=== PATIENT | male | born 2000 | race Caucasian/White ===

== ENCOUNTER 2021-11-23 12:59 | Emergency (ER) | payer OTHER ==
[2021-11-23] MEDS ORDERED: FAMOTIDINE 20 MG TAB PO STA (13:17)
--- NOTE | 2021-11-23 13:21 | ED ---
General Adult HPI - General Chief complaint: Nausea/Vomiting/Diarrhea Stated complaint: Vomiting blood Time Seen by Provider: 11/23/21 13:06 Source: patient, RN notes reviewed, old records reviewed Mode of arrival: ambulatory Limitations: no limitations - History of Present Illness Initial comments: This is a well-appearing 20-year-old male that presents to the emergency room with his brother with complaints of epigastric pain and one episode of vomiting blood yesterday. Patient states he is having excessive nasal congestion and mucus over the past few months. He has not had any further emesis. Denies any other abnormal bleeding. Patient states he is also having suicidal thoughts. Does not have a plan. Hes been struggling with depression for several years. Did have suicidal thoughts 2 years ago after a breakup but no attempts. No psychiatric hospitalizations. Patient states that he does smoke marijuana and uses kratom. Denies any alcohol or other drug use. -: days(s) (1) Location: abdomen (epigastric) Radiation: non-radiation Severity scale (1-10): 2 Quality: aching Consistency: intermittent Associated Symptoms: nausea/vomiting, other (congestion) Treatments Prior to Arrival: none - Related Data Allergies Allergy/AdvReac Type Severity Reaction Status Date / Time No Known Allergies Allergy Verified 11/23/21 13:04 Review of Systems ROS Statement: Those systems with pertinent positive or pertinent negative responses have been documented in the HPI. ROS Other: All systems not noted in ROS Statement are negative. Past Medical History Past Medical History: No Reported History History of Any Multi-Drug Resistant Organisms: None Reported Past Surgical History: No Surgical Hx Reported Past Psychological History: ADD/ADHD, Anxiety, Depression Smoking Status: Vaper Past Alcohol Use History: Occasional Past Drug Use History: Marijuana General Exam Limitations: no limitations General appearance: alert, in no apparent distress Head exam: Present: atraumatic, normocephalic, normal inspection Eye exam: Present: normal appearance. Absent: scleral icterus, conjunctival injection ENT exam: Present: mucous membranes moist Expanded Mouth exam: Present: normal external inspection, tongue normal, tongue elevation. Absent: drooling, trismus, muffled voice Throat exam: negative: tonsillar erythema, tonsillomegaly, tonsillar exudate, R peritonsillar mass, L peritonsillar mass Neck exam: Present: normal inspection, full ROM. Absent: tenderness, meningismus, lymphadenopathy Respiratory exam: Present: normal lung sounds bilaterally. Absent: respiratory distress, wheezes, rales, rhonchi, stridor, chest wall tenderness, accessory muscle use Cardiovascular Exam: Present: regular rate GI/Abdominal exam: Present: soft. Absent: distended, tenderness, guarding, rebound, rigid Extremities exam: Present: full ROM, normal capillary refill. Absent: tenderness, pedal edema, calf tenderness Back exam: Present: full ROM. Absent: tenderness, CVA tenderness (R), CVA tenderness (L) Neurological exam: Present: alert, oriented X3, normal gait Psychiatric exam: Present: depressed, suicidal ideation Skin exam: Present: warm, dry, normal color. Absent: cyanosis, diaphoretic, petechiae, pallor Course Vital Signs 11/23/21 11/23/21 13:00 16:30 Temperature 98 F 98.1 F Pulse Rate 100 92 Respiratory 18 20 Rate Blood Pressure 132/82 128/78 O2 Sat by Pulse 99 96 Oximetry Medical Decision Making - Medical Decision Making Patient presents with one episode of bloody emesis and suicidal ideation. He reports no other abnormal bleeding. No abdominal pain. On physical exam patient's abdomen is soft and nontender. He is afebrile. Vital signs are stable. Hemoglobin and hematocrit are stable. Platelet count is within normal limits. He states he does have a history of depression and stopped taking Wellbutrin approximately 3-4 months ago. He denies any suicidal plan. No previous suicide attempts. EPS nurse Angelica did speak with patient and has provided him with resources. She feels he is stable to be discharged. His brother is at bedside. He will be discharged home to follow up with his primary care doctor and [facility]. Case discussed with Dr. Amaya who is also agreeable to this plan of care. - Lab Data Result diagrams: 11/23/21 13:33 11/23/21 13:33 Lab Results 11/23/21 11/23/21 11/23/21 Range/Units 13:33 13:33 13:33 WBC 4.8 (4.0-11.0) k/uL RBC 5.06 (4.30-5.90) m/uL Hgb 15.5 (13.0-17.5) gm/dL Hct 45.9 (39.0-53.0) % MCV 90.8 (80.0-100.0) fL MCH 30.6 (25.0-35.0) pg MCHC 33.7 (31.0-37.0) g/dL RDW 12.4 (11.5-15.5) % Plt Count 238 (150-450) k/uL MPV 8.3 Neutrophils % 64 % Lymphocytes % 26 % Monocytes % 7 % Eosinophils % 0 % Basophils % 0 % Neutrophils # 3.1 (1.3-7.7) k/uL Lymphocytes # 1.3 (1.0-4.8) k/uL Monocytes # 0.3 (0-1.0) k/uL Eosinophils # 0.0 (0-0.7) k/uL Basophils # 0.0 (0-0.2) k/uL PT 11.6 (9.0-12.0) sec INR 1.1 (<1.2) APTT 27.9 (22.0-30.0) sec Sodium 141 (137-145) mmol/L Potassium 4.1 (3.5-5.1) mmol/L Chloride 105 (98-107) mmol/L Carbon Dioxide 21 L (22-30) mmol/L Anion Gap 15 mmol/L BUN 9 (9-20) mg/dL Creatinine 0.86 (0.66-1.25) mg/dL Est GFR (CKD-EPI)AfAm >90 (>60 ml/min/1.73 sqM) Est GFR (CKD-EPI)NonAf >90 (>60 ml/min/1.73 sqM) Glucose 92 (74-99) mg/dL Calcium 9.9 (8.4-10.2) mg/dL Magnesium 2.3 (1.6-2.3) mg/dL Total Bilirubin 0.8 (0.2-1.3) mg/dL AST 26 (17-59) U/L ALT 22 (4-49) U/L Alkaline Phosphatase 125 (38-126) U/L Total Protein 9.1 H (6.3-8.2) g/dL Albumin 5.5 H (3.5-5.0) g/dL Urine Color Urine Appearance (Clear) Urine pH (5.0-8.0) Ur Specific [place] (1.001-1.035) Urine Protein (Negative) Urine Glucose (UA) (Negative) Urine Ketones (Negative) Urine Blood (Negative) Urine Nitrite (Negative) Urine Bilirubin (Negative) Urine Urobilinogen (<2.0) mg/dL Ur Leukocyte Esterase (Negative) Urine RBC (0-5) /hpf Urine WBC (0-5) /hpf Amorphous Sediment (None) /hpf Urine Bacteria (None) /hpf Urine Mucus (None) /hpf Urine Opiates Screen (NotDetected) Ur Oxycodone Screen (NotDetected) Urine Methadone Screen (NotDetected) Ur Propoxyphene Screen (NotDetected) Ur Barbiturates Screen (NotDetected) U Tricyclic Antidepress (NotDetected) Ur Phencyclidine Scrn (NotDetected) Ur Amphetamines Screen (NotDetected) U Methamphetamines Scrn (NotDetected) U Benzodiazepines Scrn (NotDetected) Urine Cocaine Screen (NotDetected) U Marijuana (THC) Screen (NotDetected) 11/23/21 Range/Units 14:20 WBC (4.0-11.0) k/uL RBC (4.30-5.90) m/uL Hgb (13.0-17.5) gm/dL Hct (39.0-53.0) % MCV (80.0-100.0) fL MCH (25.0-35.0) pg MCHC (31.0-37.0) g/dL RDW (11.5-15.5) % Plt Count (150-450) k/uL MPV Neutrophils % % Lymphocytes % % Monocytes % % Eosinophils % % Basophils % % Neutrophils # (1.3-7.7) k/uL Lymphocytes # (1.0-4.8) k/uL Monocytes # (0-1.0) k/uL Eosinophils # (0-0.7) k/uL Basophils # (0-0.2) k/uL PT (9.0-12.0) sec INR (<1.2) APTT (22.0-30.0) sec Sodium (137-145) mmol/L Potassium (3.5-5.1) mmol/L Chloride (98-107) mmol/L Carbon Dioxide (22-30) mmol/L Anion Gap mmol/L BUN (9-20) mg/dL Creatinine (0.66-1.25) mg/dL Est GFR (CKD-EPI)AfAm (>60 ml/min/1.73 sqM) Est GFR (CKD-EPI)NonAf (>60 ml/min/1.73 sqM) Glucose (74-99) mg/dL Calcium (8.4-10.2) mg/dL Magnesium (1.6-2.3) mg/dL Total Bilirubin (0.2-1.3) mg/dL AST (17-59) U/L ALT (4-49) U/L Alkaline Phosphatase (38-126) U/L Total Protein (6.3-8.2) g/dL Albumin (3.5-5.0) g/dL Urine Color Yellow Urine Appearance Turbid (Clear) Urine pH 8.0 (5.0-8.0) Ur Specific [place] 1.024 (1.001-1.035) Urine Protein 1+ H (Negative) Urine Glucose (UA) Negative (Negative) Urine Ketones 2+ H (Negative) Urine Blood Negative (Negative) Urine Nitrite Negative (Negative) Urine Bilirubin Negative (Negative) Urine Urobilinogen <2.0 (<2.0) mg/dL Ur Leukocyte Esterase Negative (Negative) Urine RBC 1 (0-5) /hpf Urine WBC <1 (0-5) /hpf Amorphous Sediment Rare H (None) /hpf Urine Bacteria Rare H (None) /hpf Urine Mucus Many H (None) /hpf Urine Opiates Screen Not Detected (NotDetected) Ur Oxycodone Screen Not Detected (NotDetected) Urine Methadone Screen Not Detected (NotDetected) Ur Propoxyphene Screen Not Detected (NotDetected) Ur Barbiturates Screen Not Detected (NotDetected) U Tricyclic Antidepress Not Detected (NotDetected) Ur Phencyclidine Scrn Not Detected (NotDetected) Ur Amphetamines Screen Not Detected (NotDetected) U Methamphetamines Scrn Not Detected (NotDetected) U Benzodiazepines Scrn Not Detected (NotDetected) Urine Cocaine Screen Not Detected (NotDetected) U Marijuana (THC) Screen Detected H (NotDetected) Disposition Clinical Impression: Depression, GIB (gastrointestinal bleeding) Disposition: HOME SELF-CARE Condition: Good Instructions (If sedation given, give patient instructions): Depression (ED), Acute Nausea and Vomiting (ED), Suicide Prevention (ED) Additional Instructions: Your hemoglobin, hematocrit and platelet counts are within normal limits today. Follow-up with your primary care doctor regarding possible gastroenterology referral for your episode of vomiting blood. Discuss with the primary care doctor possibly restarting Wellbutrin for depression. Follow-up with [facility] for depression. Return to the Emergency room with any new or concerning symptoms. Is patient prescribed a controlled substance at d/c from ED?: No Referrals: Jacques Long MD [Primary Care Provider] - 1-2 days Time of Disposition: 16:44
[2021-11-23 13:52] LABS: Basophils % (A) 0 %; Eosinophils % (A) 0 %; HCT 45.9 % (39.0-53.0); HGB 15.5 gm/dL (13.0-17.5); Lymphocytes # (A) 1.3 k/uL (1.0-4.8); Lymphocytes % (A) 26 %; MCH 30.6 pg (25.0-35.0); MCHC 33.7 g/dL (31.0-37.0); MCV 90.8 fL (80.0-100.0); Mean Platelet Volume 8.3; Monocytes # (A) 0.3 k/uL (0-1.0); Monocytes % (A) 7 %; Neutrophils # (A) 3.1 k/uL (1.3-7.7); Neutrophils % (A) 64 %; Platelet Count 238 k/uL (150-450); RBC 5.06 m/uL (4.30-5.90); RDW 12.4 % (11.5-15.5); WBC 4.8 k/uL (4.0-11.0)
[2021-11-23 14:00] LABS: ALT 22 U/L (4-49); AST 26 U/L (17-59); African American GFR (CKD) >90 (>60 ml/min/1.73 sqM); Albumin 5.5 g/dL (3.5-5.0); Alkaline Phosphatase 125 U/L (38-126); Anion Gap 15 mmol/L; Blood Urea Nitrogen 9 mg/dL (9-20); Calcium 9.9 mg/dL (8.4-10.2); Carbon Dioxide 21 mmol/L (22-30); Chloride 105 mmol/L (98-107); Glucose 92 mg/dL (74-99); Magnesium 2.3 mg/dL (1.6-2.3); Non-African American GFR(CKD) >90 (>60 ml/min/1.73 sqM); Potassium 4.1 mmol/L (3.5-5.1); Sodium 141 mmol/L (137-145); Total Bilirubin 0.8 mg/dL (0.2-1.3); Total Protein 9.1 g/dL (6.3-8.2)
[2021-11-23 14:01] LABS: INR 1.1 (<1.2); Partial Thromboplastin Time 27.9 sec (22.0-30.0); Prothrombin Time 11.6 sec (9.0-12.0)
[2021-11-23 15:44] LABS: Amphetamine Screen,Urine Not Detected (NotDetected); Barbiturate Screen,Urine Not Detected (NotDetected); Benzodiazepines Screen,Urine Not Detected (NotDetected); Cocaine Screen,Urine Not Detected (NotDetected); Methadone Screen, Urine Not Detected (NotDetected); Opiate Screen,Urine Not Detected (NotDetected); Oxycodone Screen, Urine Not Detected (NotDetected); Phencyclidine Screen,Urine Not Detected (NotDetected); Tricyclic Antidepressant,Urine Not Detected (NotDetected); Urn Cannabinoid Scrn Detected (NotDetected)
[2021-11-23 15:47] LABS: Amorphous Sediment,Urine Rare /hpf; Appearance,Urine Turbid (Clear); Bacteria,Urine Rare /hpf; Bilirubin,Urine Negative (Negative); Blood,Urine Negative (Negative); Color,Urine Yellow; Glucose,Urine (UA) Negative (Negative); Leukocyte Esterase,Urine Negative (Negative); Mucus,Urine Many /hpf; Nitrite,Urine Negative (Negative); Protein,Urine 1+ (Negative); RBC,Urine 1 /hpf (0-5); Specific Gravity,Urine 1.024 (1.001-1.035); Urobilinogen,Urine <2.0 mg/dL (<2.0); WBC,Urine <1 /hpf (0-5)
[2021-11-23 16:31] LABS: Ketones,Urine 2+ (Negative)
[2021-11-23 16:35] VITALS: RESP 20
[2021-11-23 17:01] VITALS: BP 122/78; PULSE 89; TEMP 98
== END 2021-11-23 16:58 | disposition home or self-care (01) ==
LOC: EC 12:59
DX: F32.A Depression, unspecified (principal); K92.2 Gastrointestinal hemorrhage, unspecified; F90.9 Attention-deficit hyperactivity disorder, unspecified type; F41.9 Anxiety disorder, unspecified; F12.90 Cannabis use, unspecified, uncomplicated; Z79.899 Other long term (current) drug therapy
CPT/HCPCS: 36415; 80053; 80306; 81001; 82075; 83735; 85025; 85610; 85730; 99284

== ENCOUNTER 2023-05-04 15:15 | Inpatient (IN) | payer MEDICAID, OTHER ==
--- NOTE | 2023-05-04 18:44 | ED ---
Psych HPI - General Chief Complaint: Psychiatric Symptoms Stated Complaint: Mental Health Time Seen by Provider: 05/04/23 15:20 Source: patient, EMS Mode of arrival: EMS - History of Present Illness Initial Comments: 22-year-old male presents emergency department reporting suicidal ideations. Has a history of depression. States that he has had some suicidal thoughts over the past couple of days. He recently had moved back in with his mother and they do not get along. Patient denies any attempt at harming himself. Denies drug or alcohol use. Patient does see a counselor and takes medication however he states he does not feel like they are helping. No other alleviating, precipitating or modifying factors - Related Data Home Medications Medication Instructions Recorded Confirmed DULoxetine HCL [Cymbalta] 30 mg PO BID 05/04/23 05/04/23 Previous Rx's Medication Instructions Recorded Mirtazapine [Remeron] 15 mg PO HS 14 Days #14 tab 09/09/22 Allergies Allergy/AdvReac Type Severity Reaction Status Date / Time No Known Allergies Allergy Verified 05/04/23 16:18 Review of Systems ROS Statement: Those systems with pertinent positive or pertinent negative responses have been documented in the HPI. ROS Other: All systems not noted in ROS Statement are negative. Past Medical History Past Medical History: Asthma History of Any Multi-Drug Resistant Organisms: None Reported Past Surgical History: No Surgical Hx Reported Past Psychological History: ADD/ADHD, Anxiety, Depression Smoking Status: Vaper Past Alcohol Use History: Occasional Past Drug Use History: None Reported General Exam Limitations: no limitations General appearance: alert, in no apparent distress Head exam: Present: atraumatic, normocephalic, normal inspection Eye exam: Present: normal appearance, PERRL, EOMI. Absent: scleral icterus, conjunctival injection, periorbital swelling ENT exam: Present: normal exam, mucous membranes moist Neck exam: Present: normal inspection. Absent: tenderness, meningismus, lymphadenopathy Respiratory exam: Present: normal lung sounds bilaterally. Absent: respiratory distress, wheezes, rales, rhonchi, stridor Cardiovascular Exam: Present: regular rate, normal rhythm, normal heart sounds. Absent: systolic murmur, diastolic murmur, rubs, gallop, clicks GI/Abdominal exam: Present: soft, normal bowel sounds. Absent: distended, tenderness, guarding, rebound, rigid Extremities exam: Present: normal inspection, full ROM, normal capillary refill. Absent: tenderness, pedal edema, joint swelling, calf tenderness Back exam: Present: normal inspection Neurological exam: Present: alert, oriented X3, CN II-XII intact Psychiatric exam: Present: depressed Skin exam: Present: warm, dry, intact, normal color. Absent: rash Course Vital Signs 05/04/23 05/05/23 05/05/23 15:18 07:11 14:53 Temperature 98.3 F Pulse Rate 100 69 68 Respiratory 18 16 18 Rate Blood Pressure 148/82 121/78 124/84 O2 Sat by Pulse 98 98 97 Oximetry Medical Decision Making - Medical Decision Making Was pt. sent in by a medical professional or institution (, PA, [employer], urgent care, hospital, or skilled nursing...) When possible be specific @ -No Did you speak to anyone other than the patient for history (EMS, parent, family, police, friend...)? What history was obtained from this source @ -No Did you review nursing and triage notes (agree or disagree)? Why? @ -I reviewed and agree with nursing and triage notes Were old charts reviewed (outside hosp., previous admission, EMS record, old EKG, old radiological studies, urgent care reports/EKG's, skilled nursing records)? Report findings @ -No old charts were reviewed Differential Diagnosis (chest pain, altered mental status, abdominal pain women, abdominal pain men, vaginal bleeding, weakness, fever, dyspnea, syncope, headache, dizziness, GI bleed, back pain, seizure, CVA, palpatations, mental health, musculoskeletal)? @ -Differential Mental Health Depression, anxiety, bipolar, psychosis, schizophrenia, borderline personality, situational depression, adjustment disorder, behavioral disorder, brain tumor, malingering, substance abuse, encephalopathy, medication reaction, dementia, hypothyroidism, degenerative neurologic disorder, lupus.... This is not meant to be all-inclusive list EKG interpreted by me (3pts min.). @ -Not done X-rays interpreted by me (1pt min.). @ -None done CT interpreted by me (1pt min.). @ -None done U/S interpreted by me (1pt. min.). @ -None done What testing was considered but not performed or refused? (CT, X-rays, U/S, labs)? Why? @ -None What meds were considered but not given or refused? Why? @ -None Did you discuss the management of the patient with other professionals (professionals i.e. , PA, [employer] RE[employer], lab, RT, psych nurse, social work professor, director mission, teacher, grants officer, telephonic nurse case manager)? Give summary @ -EPS social work professor Was smoking cessation discussed for >3mins.? @ -No Was critical care preformed (if so, how long)? @ -No Were there social determinants of health that impacted care today? How? (Homelessness, low income, unemployed, alcoholism, drug addiction, transportation, low edu. Level, literacy, decrease access to med. care, long term, rehab)? @ -No Was there de-escalation of care discussed even if they declined (Discuss DNR or withdrawal of care, Hospice)? DNR status @ -No What co-morbidities impacted this encounter? (DM, HTN, Smoking, COPD, CAD, Cancer, CVA, ARF, Chemo, Hep., AIDS, mental health diagnosis, sleep apnea, morbid obesity)? @ -Depression Was patient admitted / discharged? Hospital course, mention meds given and route, prescriptions, significant lab abnormalities, going to OR and other pertinent info. @ -Upon arrival patient placed into room 13. Thorough history and physical exam was performed. Patient does provide a urine sample. He is evaluated by EPS. They do feel that the patient needs to be hospitalized. He is currently awaiting placement Undiagnosed new problem with uncertain prognosis? @ -No Drug Therapy requiring intensive monitoring for toxicity (Heparin, Nitro, Insulin, Cardizem)? @ -No Were any procedures done? @ -No Diagnosis/symptom? @ -Acute depression, acute suicidal ideation Acute, or Chronic, or Acute on Chronic? @ -Acute Uncomplicated (without systemic symptoms) or Complicated (systemic symptoms)? @ -Default Side effects of treatment? @ -No Exacerbation, Progression, or Severe Exacerbation? @ -No Poses a threat to life or bodily function? How? (Chest pain, USA, IA, pneumonia, PE, COPD, DKA, ARF, appy, cholecystitis, CVA, Diverticulitis, Homicidal, Suicidal, threat to staff... and all critical care pts) @ -No - Lab Data Result diagrams: 05/06/23 08:05 05/06/23 08:05 Lab Results 05/04/23 05/04/23 Range/Units 18:40 22:12 Urine Color Colorless Urine Appearance Clear (Clear) Urine pH 6.5 (5.0-8.0) Ur Specific [place] 1.007 (1.001-1.035) Urine Protein Negative (Negative) Urine Glucose (UA) Negative (Negative) Urine Ketones Negative (Negative) Urine Blood Negative (Negative) Urine Nitrite Negative (Negative) Urine Bilirubin Negative (Negative) Urine Urobilinogen <2.0 (<2.0) mg/dL Ur Leukocyte Esterase Negative (Negative) Urine Opiates Screen Not Detected (NotDetected) Ur Oxycodone Screen Not Detected (NotDetected) Urine Methadone Screen Not Detected (NotDetected) Ur Barbiturates Screen Not Detected (NotDetected) U Tricyclic Antidepress Not Detected (NotDetected) Ur Phencyclidine Scrn Not Detected (NotDetected) Ur Amphetamines Screen Not Detected (NotDetected) U Methamphetamines Scrn Not Detected (NotDetected) U Benzodiazepines Scrn Not Detected (NotDetected) Urine Cocaine Screen Not Detected (NotDetected) U Marijuana (THC) Screen Detected H (NotDetected) Influenza Type A (PCR) Not Detected (Not Detectd) Influenza Type B (PCR) Not Detected (Not Detectd) RSV (PCR) Not Detected (Not Detectd) SARS-CoV-2 (PCR) Not Detected (Not Detectd) Disposition Clinical Impression: Depression, Suicidal ideation Disposition: TRANSFER TO PSYCH HOSP/UNIT Condition: Serious Is patient prescribed a controlled substance at d/c from ED?: No
[2023-05-04 18:51] LABS: Appearance,Urine Clear (Clear); Bilirubin,Urine Negative (Negative); Blood,Urine Negative (Negative); Color,Urine Colorless; Glucose,Urine (UA) Negative (Negative); Ketones,Urine Negative (Negative); Leukocyte Esterase,Urine Negative (Negative); Nitrite,Urine Negative (Negative); PH, Urine 6.5 (5.0-8.0); Protein,Urine Negative (Negative); Specific Gravity,Urine 1.007 (1.001-1.035); Urobilinogen,Urine <2.0 mg/dL (<2.0)
[2023-05-04 19:12] LABS: Amphetamine Screen,Urine Not Detected (NotDetected); Barbiturate Screen,Urine Not Detected (NotDetected); Benzodiazepines Screen,Urine Not Detected (NotDetected); Cocaine Screen,Urine Not Detected (NotDetected); Methadone Screen, Urine Not Detected (NotDetected); Opiate Screen,Urine Not Detected (NotDetected); Oxycodone Screen, Urine Not Detected (NotDetected); Phencyclidine Screen,Urine Not Detected (NotDetected); Tricyclic Antidepressant,Urine Not Detected (NotDetected); Urn Cannabinoid Scrn Detected (NotDetected)
[2023-05-04] MEDS: DULoxetine HCL 30 MG CAPSULE.DR PO SCH (22:17)
[2023-05-04] MEDS: MIRTAZAPINE 15 MG TAB PO SCH (22:17)
[2023-05-04] MEDS: ACETAMINOPHEN TAB 325 MG TAB PO STA (22:56)
[2023-05-05] MEDS ORDERED: HALOPERIDOL LACTATE 5 MG/ML 1 ML VIAL IM PRN (14:44)
[2023-05-05] MEDS ORDERED: LORazepam 2 MG/ML INJ IM PRN (14:44)
[2023-05-05] MEDS ORDERED: MAG HYDROX/AL HYDROX/SIMETH 355 ML BOTTLE PO PRN (14:44)
[2023-05-05] MEDS ORDERED: MAGNESIUM HYDROXIDE 2,400 MG/30 ML CUP PO PRN (14:44)
[2023-05-05] MEDS: LORazepam 1 MG TAB PO PRN (15:55)
[2023-05-05 15:59] LABS: Glucose,Whole Blood 104 mg/dL (70-110)
[2023-05-05] MEDS: DULoxetine HCL 30 MG CAPSULE.DR PO SCH (18:44)
[2023-05-05] MEDS: MIRTAZAPINE 15 MG TAB PO SCH (20:16)
[2023-05-05] MEDS: haloperidoL 5 MG TAB PO PRN (20:16)
[2023-05-06 08:49] LABS: Basophils % (A) 0 %; Eosinophils # (A) 0.1 k/uL (0-0.7); Eosinophils % (A) 2 %; HCT 49.9 % (39.0-53.0); HGB 16.4 gm/dL (13.0-17.5); Lymphocytes # (A) 1.7 k/uL (1.0-4.8); Lymphocytes % (A) 26 %; MCH 31.4 pg (25.0-35.0); MCHC 32.8 g/dL (31.0-37.0); MCV 95.7 fL (80.0-100.0); Mean Platelet Volume 7.7; Monocytes # (A) 0.7 k/uL (0-1.0); Monocytes % (A) 10 %; Neutrophils # (A) 3.7 k/uL (1.3-7.7); Neutrophils % (A) 59 %; Platelet Count 281 k/uL (150-450); RBC 5.22 m/uL (4.30-5.90); RDW 12.3 % (11.5-15.5); WBC 6.3 k/uL (3.8-10.6)
[2023-05-06] MEDS ORDERED: DULoxetine HCL 30 MG CAPSULE.DR PO SCH (09:00)
[2023-05-06 09:02] LABS: ALT 25 U/L (4-49); AST 34 U/L (17-59); African American GFR (CKD) >90 (>60 ml/min/1.73 sqM); Albumin 5.1 g/dL (3.5-5.0); Alkaline Phosphatase 90 U/L (38-126); Anion Gap 10 mmol/L; Blood Urea Nitrogen 15 mg/dL (9-20); Calcium 9.6 mg/dL (8.4-10.2); Carbon Dioxide 28 mmol/L (22-30); Chloride 103 mmol/L (98-107); Glucose 90 mg/dL (74-99); Non-African American GFR(CKD) >90 (>60 ml/min/1.73 sqM); Potassium 4.1 mmol/L (3.5-5.1); Sodium 141 mmol/L (137-145); Total Bilirubin 0.7 mg/dL (0.2-1.3); Total Protein 8.7 g/dL (6.3-8.2)
[2023-05-06 10:21] VITALS: RESP 16
[2023-05-06] MEDS: lamoTRIgine 25 MG TAB PO SCH (14:23)
--- NOTE | 2023-05-06 15:18 | P.MDCNMH ---
History of Present Illness H&P Date: 05/06/23 This is a 22-year-old male who presented to the emergency department with increased thoughts of suicide with depression. Patient follows with Dr. Tulio Griggs in the outpatient setting with a past medical history of asthma, Rani- Danlos syndrome, ADD/ADHD with anxiety and depression. Patient reports he does not smoke cigarettes but does use marijuana daily and occasionally drinks and denies any other illicit drug use. Patient has been feeling increasing depression and anxiety with some suicidal thoughts as he is recently moved back in with his mother and they do not get along very well. Patient reports he has been having issues at night with excessively sweating and other than that re ports to feeling fine. On exam, lung sounds are clear and vital signs are stable. Recommend labs including CMP, magnesium, TSH as well as EKG. Patient reports he is voiding and having bowel movements with no difficulties and is eating and tolerating diet with no reported nausea or vomiting. Patient voluntarily signed onto [facility] for psychiatric evaluation. Patient has been encouraged to continue with group therapy sessions and work with the psychiatrist regarding medication adjustments and discharge planning. REVIEW OF SYSTEMS: CONSTITUTIONAL: No fever, no malaise, no fatigue. HEENT: No recent visual problems or hearing problems. Denied any sore throat. CARDIOVASCULAR: No chest pain, orthopnea, PND, no palpitations, no syncope. PULMONARY: No shortness of breath, no cough, no hemoptysis. GASTROINTESTINAL: No diarrhea, no nausea, no vomiting, no abdominal pain. NEUROLOGICAL: No headaches, no weakness, no numbness. HEMATOLOGICAL: Denies any bleeding or petechiae. GENITOURINARY: Denies any burning micturition, frequency, or urgency. MUSCULOSKELETAL/RHEUMATOLOGICAL: Denies any joint pain, swelling, or any muscle pain. ENDOCRINE: Denies any polyuria or polydipsia. The rest of the 14-point review of systems is negative. PHYSICAL EXAMINATION: GENERAL: The patient is alert and oriented x3, not in any acute distress. Well developed, well nourished. HEENT: Pupils are round and equally reacting to light. EOMI. No scleral icterus. No conjunctival pallor. Normocephalic, atraumatic. No pharyngeal erythema. No thyromegaly. CARDIOVASCULAR: S1 and S2 present. No murmurs, rubs, or gallops. PULMONARY: Chest is clear to auscultation, no wheezing or crackles. ABDOMEN: Soft, nontender, nondistended, normoactive bowel sounds. No palpable organomegaly. MUSCULOSKELETAL: No joint swelling or deformity. EXTREMITIES: No cyanosis, clubbing, or pedal edema. NEUROLOGICAL: Gross neurological examination did not reveal any focal deficits. SKIN: No rashes. Assessment: Depression with suicidal ideation Marijuana use daily History of anxiety/depression History of ADD/ADHD History of asthma, not in exacerbation History of Rani-Danlos syndrome Plan: Patient has been voluntarily admitted to [facility] inpatient psychiatric unit for further psychiatric evaluation for suicidal ideation with increased depression Medications reviewed and resumed as appropriate Recommend labs including magnesium and TSH and will order EKG for evaluation Patient has been encouraged and instructed to continue with group therapy sessions and compliance with medications and psychiatric evaluation Thank you kindly for this consultation. The impression and plan of care has been dictated by Emelyn Alvarez, Nurse Practitioner as directed. Dr. Kolby MD I have performed a history and examination and MDM of this patient, discussed the same with the dictator, and agree with the dictator's assessment and plan as written ,documented as a scribe. Based on total visit time, I have performed more than 50% of the visit. Past Medical History Past Medical History: Asthma Additional Past Medical History / Comment(s): EDS Rani Danlos Syndrome. [place] joint pain History of Any Multi-Drug Resistant Organisms: None Reported Past Surgical History: No Surgical Hx Reported Past Psychological History: ADD/ADHD, Anxiety, Depression Smoking Status: Never smoker Past Alcohol Use History: Occasional Past Drug Use History: None Reported Medications and Allergies Home Medications Medication Instructions Recorded Confirmed Type Mirtazapine [Remeron] 15 mg PO HS 14 Days #14 tab 09/09/22 05/04/23 Rx DULoxetine HCL [Cymbalta] 30 mg PO BID 05/04/23 05/04/23 History Allergies Allergy/AdvReac Type Severity Reaction Status Date / Time No Known Allergies Allergy Verified 05/04/23 16:18 Physical Exam Vitals: Vital Signs Temp Pulse Pulse Resp BP BP Pulse Ox 05/06/23 06:18 98.0 F 107 H 20 113/54 97 05/05/23 15:55 136 H 20 121/96 98 05/05/23 15:25 96.2 F L 87 18 129/75 97 05/05/23 14:53 68 18 124/84 97 Intake and Output 05/05/23 05/06/23 05/06/23 22:59 06:59 14:59 Other: Weight 81.647 kg Cranial Nerve Examination - Cranial Nerves Cranial Nerve I- Olfactory: Intact Cranial Nerve II- Optic: Intact Cranial Nerve III- Oculomotor: Intact Cranial Nerve IV- Trochlear: Intact Cranial Nerve V- Trigeminal: Intact Cranial Nerve - Abducens: Intact Cranial Nerve VII- Facial: Intact Cranial Nerve VIII- Auditory: Intact Cranial Nerve IX- Glossopharyngeal: Intact Cranial Nerve X- Vagus: Intact Cranial Nerve XI- Accessory: Intact Cranial Nerve XII- Hypoglossal: Intact Results CBC & Chem 7: 05/06/23 08:05 05/06/23 08:05 Assessment and Plan Time with Patient: Less than 30
[2023-05-06 17:16] LABS: Chol/HDL Ratio 6.04 Ratio; LDL Cholesterol,Calculated 128.6 mg/dL (0.0-131.0)
[2023-05-06] MEDS: QUEtiapine 25 MG TAB PO SCH (21:23)
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
--- NOTE | 2023-05-07 11:10 | P.PN ---
Progress Note - Text Progress Note Date: 05/07/23 Interval History: Patient was seen wandering the hallways and was directable and agreeable to glenna linton with automobile and property underwriter in the office. Patient states that he's noticed a boost in his mood, from the medication. States he was having racing thoughts at bed time last night, and had trouble initiating sleep. Gallery Or Museum Curator spoke with patient about increasing his Seroquel, patient agreeable. Patient is attending groups. Patient states his appetite is good. Patient appears to be fairly concrete. At this time patient denies any suicidal or homicidal ideations, intent or plan. Patient denies any auditory, visual hallucinations and denies any paranoia or delusions. Patient denies any side effects from the medications and has been compliant with meds. MENTAL STATUS EXAM: General Appearance: Patient appears to be longer hair, wearing glasses,stated age is alert, directable, and attempts to cooperate. Patient appears to have fair hygiene and grooming. Behavior: Patient is seated without any agitated behavior. poor eye contact Speech: Patient's speech is fluent and nonpressured. Monotone Mood/Affect: Patient reports their mood is depressed and anxious, affect is congruent and constricted. Suicidality/Homicidality: Patient denies having any homicidal ideation intent or plan. Denies any suicidal ideations intent or plan Perceptions: Patient denies any visual hallucinations and denies any auditory hallucinations Though content/process: There is no evidence of any delusional thought content and thought process is linear and goal-directed. [place]. Memory and concentration: AOX3, grossly intact for the purposes of this session. Judgment and insight: Poor, improving mildly IMPRESSIONS: adjustment disorder with depression and anxiety depressive disorder unspecified Anxiety disorder unspecified borderline personality disorder Cannabis use disorder PLAN: -Patient is admitted under voluntary status to MHU for stabilization of psychiatric symptoms and safety. Patient has signed adult voluntary form and medication consent and is placed in patient's chart. -Medications : Cymbalta 30 mg twice a day for mood/anxiety/pain, increase Seroquel 50 mg nightly for mood stabilization/insomnia, Lamictal 25 mg twice daily for mood stabilization/depression. Patient was informed of the side eff ect of a possible rash and to monitor his skin and to report if he does see this. He verbally understood and agreed. -Ativan and Haldol PRN for agitation/aggression -NRT -nicotine patch -SW on board for discharge planning. Encourage patient to participate in groups to work on coping skills. Hopeful for discharge early next week if patient improves.
[2023-05-07] MEDS: QUEtiapine 50 MG TAB PO SCH (23:07)
--- NOTE | 2023-05-08 12:10 | P.PN ---
Progress Note - Text Progress Note Date: 05/08/23 Interval History: Patient was seen wandering the hallways and was directable and agreeable to sp shaila with creative services writer in the office. Patient states that he's feeling "pretty wonderful". Patient claims this is from being able to get good rest while on the unit. Patient is attending groups. Patient states his appetite is good. Patient appears to be fairly concrete, however, this is mildly approving. At this time patient denies any suicidal or homicidal ideations, intent or plan. Patient denies any auditory, visual hallucinations and denies any paranoia or delusions. Patient denies any side effects from the medications and has been compliant with meds. MENTAL STATUS EXAM: General Appearance: Patient appears to be longer hair, wearing glasses,stated age is alert, directable, and attempts to cooperate. Patient appears to have fair hygiene and grooming. Behavior: Patient is seated without any agitated behavior. improving eye contact Speech: Patient's speech is fluent and nonpressured. Monotone, mildly improving Mood/Affect: Patient reports their mood is "pretty wonderful", affect is co ngruent and constricted. Suicidality/Homicidality: Patient denies having any homicidal ideation intent or plan. Denies any suicidal ideations intent or plan Perceptions: Patient denies any visual hallucinations and denies any auditory hallucinations Though content/process: There is no evidence of any delusional thought content and thought process is linear and goal-directed. [place]. Memory and concentration: AOX3, grossly intact for the purposes of this session. Judgment and insight: Poor, improving mildly IMPRESSIONS: adjustment disorder with depression and anxiety depressive disorder unspecified Anxiety disorder unspecified borderline personality disorder Cannabis use disorder PLAN: -Patient is admitted under voluntary status to MHU for stabilization of psychiatric symptoms and safety. Patient has signed adult voluntary form and medication consent and is placed in patient's chart. -Medications : Cymbalta 30 mg twice a day for mood/anxiety/pain, Seroquel 50 mg nightly for mood stabilization/insomnia, Lamictal 25 mg twice daily for mood stabilization/depression. Patient was informed of the side effect of a possible rash and to monitor his skin and to report if he does see this. He verbally understood and agreed. -Ativan and Haldol PRN for agitation/aggression -NRT -nicotine patch -SW on board for discharge planning. Encourage patient to participate in groups to work on coping skills. Hopeful for discharge Thursday, if patient improves.
[2023-05-08] MEDS: IBUPROFEN 600 MG TAB PO PRN (23:18)
--- NOTE | 2023-05-09 12:20 | P.PN ---
Progress Note - Text Progress Note Date: 05/09/23 Interval history: Patient was seen talking to another patient in the hallway and was directable and agreeable to speak with bond writer. Patient states that he is doing a bit better with regards to his mood, believes that he is more stable and has been practicing yoga and meditation on the unit. He states that he is being more social with others on the unit as well and going to groups. Claims that he feels more hopeful being on the Lamictal and states that that has been the one that is mainly helping him. Claims that he wants remain on this dose. Denying any rash at this time. States that his sleep has been fairly well with the Seroquel, admits to improving appetite. At this time patient denies any suicidal or homicidal ideations intent or plan. Denies any Auditory or visual hallucinations. Patient denies any side effects from the medications and has been compliant with meds. Mental status exam: General Appearance: Patient appears to be wearing glasses, longer hair, stated age is alert, directable, and cooperative. Behavior: No agitated behavior. Patient is calm and directable Speech: Patient's speech is fluent and nonpressured. Mood/Affect: Mood is improving mildly, affect is congruent and improving Suicidality/Homicidality: Patient denies having any suicidal or homicidal ideation intent or plan. Perceptions: Patient denies any auditory or visual hallucinations. Though content/process: There is no evidence of any delusional thought content and thought process is linear and goal-directed. Memory and concentration: AOX3, grossly intact for the purposes of this session Judgment and insight: improving mildly Assessment/Plan: Continue with current diagnosis. Patient continues to meet criteria for inpatient psychiatric admission for symptom stabilization and safety. Patient will be maintained on current psychotropic medication regimen. Monitor for medication compliance and for any psychotropic medication side effects. Will continue to monitor ongoing response to treatment. Encouraged participation in milieu. Likely discharge Thursday if patient continues to improve.
[2023-05-09] MEDS: hydrOXYzine pamoate 25 MG CAP PO PRN (18:59)
[2023-05-09] MEDS: traZODone HCL 50 MG TAB PO PRN (23:37)
[2023-05-10] MEDS ORDERED: cloNIDine HCL 0.1 MG TAB PO PRN (10:43)
--- NOTE | 2023-05-10 10:46 | P.PN ---
Progress Note - Text Progress Note Date: 05/10/23 Interval history: Patient was seen talking to another patient in the hallway and was directable and agreeable to speak with travel writer. Patient was agreeable to speak today with travel writer in his room. Claims that his medications have been doing fairly well. He was stating that he believes that he may have ADHD and he has some racing thoughts at nighttime and restlessness. He was agreeable to try clonidine as needed. Denies any current rashes at this time. Claims that he wants remain on this dose. Denying any rash at this time. States that his sleep has been fairly well with the Seroquel, admits to improving appetite. At this time patient denies any suicidal or homicidal ideations intent or plan. Denies any Auditory or visual hallucinations. Patient denies any side effects from the medications and has been compliant with meds. Mental status exam: General Appearance: Patient appears to be wearing glasses, longer hair, stated age is alert, directable, and cooperative. Behavior: No agitated behavior. Patient is calm and directable Speech: Patient's speech is fluent and nonpressured. Mood/Affect: Mood is improving mildly, affect is congruent and improving Suicidality/Homicidality: Patient denies having any suicidal or homicidal ideation intent or plan. Perceptions: Patient denies any auditory or visual hallucinations. Though content/process: There is no evidence of any delusional thought content and thought process is linear and goal-directed. Improving mildly Memory and concentration: AOX3, grossly intact for the purposes of this session Judgment and insight: improving mildly Assessment/Plan: Continue with current diagnosis. Patient continues to meet criteria for inpatient psychiatric admission for symptom stabilization and safety. Patient will be maintained on current psychotropic medication regimen with the exception of adding clonidine 0.1 mg nightly as needed for restlessness/anxiety. Monitor for medication compliance and for any psychotropic medication side effects. Will continue to monitor ongoing response to treatment. Encouraged participation in milieu. Likely discharge Thursday if patient continues to improve. likely discharge th[facility] if patient is improving and mother is ok having him back
[2023-05-10] MEDS: ACETAMINOPHEN TAB 325 MG TAB PO PRN (15:34)
[2023-05-11] MEDS ORDERED: hydrOXYzine pamoate 25 MG CAP PO PRN (10:18)
--- NOTE | 2023-05-11 10:30 | P.PN ---
Progress Note - Text Progress Note Date: 05/11/23 Interval History: Patient was seen wandering the hallways and was directable and agreeable to sp shaila with credit underwriter in the office. Patient states that he's feeling "very stable". Patient states that he feels like he realized that he wanted to help, and take medication to improve his mental health. Patient did admit that he needed to take a PRN yesterday, due to him having some racing thoughts, because he states that he is a little bit of a hypochondriac, and he was feeling like the medications was impacting his heart rate. He stated today is better. Plant Guard counseled patient on trying the Visteral that is ordered vs Ativan. Patient agreeable. Patient claims he is sleeping well at night. Patient is attending groups. Patient states his appetite is good. Patient is taking accountability of his actions, and demonstrating using coping skills while on the unit. At this time patient denies any suicidal or homicidal ideations, intent or plan. Patient denies any auditory, visual hallucinations and denies any paranoia or delusions. Patient denies any side effects from the medications and has been compliant with meds. MENTAL STATUS EXAM: General Appearance: Patient appears to be longer hair, wearing glasses,stated age is alert, directable, and attempts to cooperate. Patient appears to have fair hygiene and grooming. Behavior: Patient is seated without any agitated behavior. improving eye contact Speech: Patient's speech is fluent and nonpressured. improving Mood/Affect: Patient reports their mood is "pretty wonderful", affect is congruent and constricted. Suicidality/Homicidality: Patient denies having any homicidal ideation intent or plan. Denies any suicidal ideations intent or plan Perceptions: Patient denies any visual hallucinations and denies any auditory hallucinations Though content/process: There is no evidence of any delusional thought content and thought process is linear and goal-directed. Memory and concentration: AOX3, grossly intact for the purposes of this session. Judgment and insight:improving IMPRESSIONS: adjustment disorder with depression and anxiety depressive disorder unspecified Anxiety disorder unspecified borderline personality disorder Cannabis use disorder PLAN: -Patient is admitted under voluntary status to MHU for stabilization of psychiatric symptoms and safety. Patient has signed adult voluntary form and medication consent and is placed in patient's chart. -Medications : Cymbalta 30 mg twice a day for mood/anxiety/pain, Seroquel 50 mg nightly for mood stabilization/insomnia, Lamictal 25 mg twice daily for mood stabilization/depression. Patient was informed of the side effect of a possible rash and to monitor his skin and to report if he does see this. He verbally understood and agreed. -Ativan and Haldol PRN for agitation/aggression -NRT -nicotine patch -SW on board for discharge planning. Encourage patient to participate in groups to work on coping skills. Hopeful for discharge Thursday to [facility], if patient continues to improve.
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
[2023-05-12 14:15] VITALS: BP 131/74; PULSE 79; TEMP 97.8
== END 2023-05-12 12:46 | disposition home or self-care (01) | DRG 755 ==
LOC: EC 15:15 → 3MHU 05-05 14:42
PROVIDERS: ADMIT Psychiatry & Neurology Psychiatry; ATTEND Psychiatry & Neurology Psychiatry
DX: F43.23 Adjustment disorder with mixed anxiety and depressed mood (principal); Z28.310 Unvaccinated for COVID-19; Z28.21 Immunization not carried out because of patient refusal; F90.9 Attention-deficit hyperactivity disorder, unspecified type; F12.10 Cannabis abuse, uncomplicated; Z56.0 Unemployment, unspecified; Q79.60 Ehlers-Danlos syndrome, unspecified; F17.290 Nicotine dependence, other tobacco product, uncomplicated; F45.21 Hypochondriasis; F60.3 Borderline personality disorder; G47.00 Insomnia, unspecified; R45.851 Suicidal ideations; Z79.899 Other long term (current) drug therapy; Z91.52 Personal history of nonsuicidal self-harm
CPT/HCPCS: 80053; 80061; 80306; 81003; 82075; 83036; 83735; 84443; 85025; 87636; 93005; 96365; 99285

== ENCOUNTER 2023-09-24 21:17 | Emergency (ER) | payer OTHER ==
[2023-09-24] MEDS ORDERED: SODIUM CHLORIDE 0.9% 1,000 ML BAG ONE (22:00)
[2023-09-25] MEDS ORDERED: IBUPROFEN 600 MG TAB PO ONE (16:36)
== END 2023-09-25 18:37 | disposition other institution (70) ==
LOC: EC 21:17
CPT/HCPCS: 96360; 99285